=== PATIENT | male | born 1960 | race Caucasian/White ===

== ENCOUNTER 2020-01-06 07:34 | Outpatient (CLI) | payer BC, SELFPAY ==
--- NOTE | ~2020-01-06 | NM_ITS ---
EXAMINATION: NM agustina stress w perfusion DATE: 01/06/2020 11:16 INDICATION: Left bundle branch block. TECHNIQUE: Rest images were obtained following intravenous administration of 10 mCi Tc99m tetrofosmin (Myoview). The patient was infused intravenously with Lexiscan (regadenoson). Then, 30.8 mCi Tc99m t etrofosmin (Myoview) was administered intravenously, and stress images were obtained. Data was recons tructed into short axis and horizontal and vertical long axis SPECT images. Gated SPECT images were a lso obtained. COMPARISON: CT abdomen and pelvis 04/07/2009 FINDINGS: There is no definite reversible or fixed perfusion abnormality to suggest ischemia or infar ction. There is no segmental wall motion abnormality. Left ventricular ejection fraction measures 6 2%. IMPRESSION: 1. No definite ischemia or infarct. 2. Normal left ventricular ejection fraction measuring 62%. Reviewed, dictated and finalized at location A.
--- NOTE | 2020-01-06 08:50 | EST_ITS ---
Patient Info Name: Ramirez Tristan Age: 59 years : 1960 Gender: Male Exam Date: 01/06/2020 9:13 AM Exam Location: [facility] Stress Patient Status: Outpatient Admit Date: 01/06/2020 Staff Ordering Physician: Eugene Sandhu PA-C Attending Provider: Eugene Sandhu PA-C Exercise Technologist: Cj Salas RDCS, RT Exercise Physician: Pranav Smith DO Exam Type: CA stress agustina w NM Study Info A regadenoson stress test was performed. Summary 1. 1. Inconclusive lexiscan stress test for ischemic ST changes by ECG criteria due to baseline LBBB. 2. 2. Stable hemodynamics throughout the test. 3. 3. Nuclear scan to follow and will be reported separately. Please correlate with it. 4. 4. Patient informed of the above results. Protocol: Lexiscan Stress ECG Details Stage: REST Duration (min): 2 min : 20 sec HR (bpm): 74 SBP (mmHg): 127 DBP (mmHg): 83 Stage: REST Duration (min): 6 min : 51 sec HR (bpm): 78 SBP (mmHg): 127 DBP (mmHg): 83 Stage: STAGE 1 Duration (min): 1 min : 0 sec HR (bpm): 116 SBP (mmHg): 151 DBP (mmHg): 78 Stage: RECOVERY Duration (min): 1 min : 0 sec HR (bpm): 113 SBP (mmHg): 151 DBP (mmHg): 78 Stage: RECOVERY Duration (min): 2 min : 0 sec HR (bpm): 111 SBP (mmHg): 153 DBP (mmHg): 83 Stage: RECOVERY Duration (min): 3 min : 0 sec HR (bpm): 97 SBP (mmHg): 151 DBP (mmHg): 86 Stage: RECOVERY Duration (min): 3 min : 39 sec HR (bpm): 103 SBP (mmHg): 151 DBP (mmHg): 86 Rest HR: 78 bpm Peak HR: 120 bpm Rest Sys BP: 127 mmHg Peak Sys BP: 153 mmHg Max Pred HR: 160 bpm % Max Pred HR: 75 % Target HR: 136 bpm Max RPP: 18,360 bpm*mmHg Termination Reason: Completed protocol Cardiac Symptoms: None Total Time: 1 min : 0 sec Rest Vines BP: 83 mmHg Peak Vines BP: 83 mmHg Total Dose: 0.4 mg Resting ECG Sinus rhythm, LBBB. Stress ECG No ST changes. Arrhythmias None. Report Signatures
== END 2020-01-06 07:35 | disposition home or self-care (01) ==
LOC: ANHCARD 07:43
PROVIDERS: PCP Family Medicine; Visit Provider Physician Assistant
DX: I44.7 Left bundle-branch block, unspecified (principal)
CPT/HCPCS: 78452; 93017; A9502; J2785

== ENCOUNTER 2021-08-29 00:14 | Day surgery (SDC) | payer BC, SELFPAY ==
[2021-08-09 08:15] VITALS: BMI 28.9
[2021-08-29 07:21] VITALS: BP 134/77; PULSE 67; RESP 20; TEMP 36.7; O2SAT 99
[2021-08-29] MEDS: LACTATED RINGERS 1,000 ML 150 ML IV CONT (07:24)
--- NOTE | 2021-08-29 08:00 | PM.IMHP ---
H&P: HPI History of Present Illness Date/Time: 08/29/21 08:00 Chief Complaint: Neoplasia screening. Narrative: This is a 61-year-old white male patient who presents for screening surveillance colonoscopy. Patient was identified as having colon cancer in 2003. He presents today for follow-up examination. Colon cancer was previously resected treated felt to be in with no evidence of active disease. Patient reports his current weight appetite and bowel movements are normal. He denies abdominal pain. He has had no bleeding. Most recent colonoscopy 2019 reveal an adenoma the did have some dysplasia. Patient presents for follow-up today. Review of Systems Review of Systems: Review of systems noncontributory. [facility] Social History Social History (Reviewed 10/12/19 @ 13:35 by Charito Norton [facility]) Smoking status: Never smoker Alcohol intake: current Alcohol use details: very rarely Substance use: never Substance use type: does not use Living arrangements: alone Spiritual care concerns: No Meds Home Medications and Allergies Home Medications Medication Instructions Recorded Confirmed Type No Home Medications 08/29/21 08/29/21 History Allergies Allergy/AdvReac Type Severity Reaction Status Date / Time UNKNOWN CHEMO MEDICATION Allergy Unknown RASH Uncoded 08/29/21 07:19 Vital Signs Vital Signs - 24 hr 08/29/21 07:21 Temperature 98.1 F Pulse Rate 67 Respiratory Rate 20 Blood Pressure 134/77 Pulse Oximetry 99 Oxygen Delivery Room Air Exam Narrative: Physical exam reveals patient to be alert. Vital signs stable. HEENT exam is unremarkable. Patient is anicteric. Lungs are clear to auscultation and percussion. Heart is without murmur or extra sounds. Abdominal exam bowel sounds are present soft nontender with no hepatosplenomegaly. Digital external rectal exam is normal. Assessment and Plan Assessment and plan (1) History of colon cancer: Code(s): Z85.038 - Personal history of other malignant neoplasm of large intestine Status: Acute Assessment and Plan: Patient has a history of colon cancer resected 2003. He has had recurrent colon polyps on follow-up surveillance exams. Plan is for follow-up colonoscopy at 3 year intervals. Further recommendations may be given after endoscopy.
--- NOTE | 2021-08-29 08:07 | WPDANESEPPF ---
Anes - Initial Pre Proc Eval Procedure: Operation Date: 08/29/21 08:30 Proposed Procedures p Screening Colonoscopy - Shlomo Townsend MD Date/Time: 08/29/21 08:07 Surgeon: Shlomo Townsend MD Pre Op Diagnosis: neoplasm screnning, hx of colon ca Patient Data Age: 61 Gender: M Height: 1.73 m Weight: 85 kg Last Vital Signs Temp 98.1 F 08/29/21 07:21 Pulse 67 08/29/21 07:21 Resp 20 08/29/21 07:21 BP 134/77 08/29/21 07:21 Pulse Ox 99 08/29/21 07:21 O2 Del Method Room Air 08/29/21 07:21 Allergies Allergy/AdvReac Type Severity Reaction Status Date / Time UNKNOWN CHEMO MEDICATION Allergy Unknown RASH Uncoded 08/29/21 07:19 Home Medications Medication Instructions Recorded Confirmed Type No Home Medications 08/29/21 08/29/21 History Patient hx anesthesia problems: none Family hx anesthesia problems: none Results Review: All pre-operative results and documents have been reviewed as part of the pre-operative evaluation. [facility] Social History Social History Smoking status: Never smoker Alcohol intake: current Alcohol use details: very rarely Substance use: never Substance use type: does not use Living arrangements: alone Spiritual care concerns: No Anes - Eval Final PreProcedure Day of Procedure 08/29/21 08:07 Patient weight: overweight Heart: regular rate and rhythm Lungs: clear to auscultation Airway: Mallampati scale class II Neurological: alert and oriented Last oral intake: >/= 8 hours ASA classification: III Emergent: no Anesthetic plan: proceed Anesthesia type and monitoring: general GIVS and standard monitoring Results Review: All pre-operative results and documents have been reviewed as part of the pre-operative evaluation. Informed Consent: The patient's anesthetic plan and its attendant risks and benefits were discussed with the patient/family/POA. Questions were solicited and answers provided to the satisfaction of the patient/family/POA.
[2021-08-29 08:57] VITALS: BP 108/70; PULSE 66; RESP 15; O2SAT 98
[2021-08-29 09:07] VITALS: BP 112/69; PULSE 61; RESP 15; O2SAT 98
[2021-08-29 09:17] VITALS: BP 130/78; PULSE 63; RESP 22; O2SAT 99
== END 2021-08-29 09:22 | disposition home or self-care (01) ==
PROVIDERS: PCP Family Medicine; Visit Provider Internal Medicine Gastroenterology
PROC: 0DJD8ZZ Inspection of Lower Intestinal Tract, Via Natural or Artificial Opening Endoscopic (ICD-10-PCS; CPT 45378; principal; 2021-08-29 08:30)
DX: Z12.11 Encounter for screening for malignant neoplasm of colon (principal); D12.3 Benign neoplasm of transverse colon; K62.1 Rectal polyp; K64.8 Other hemorrhoids; Z85.038 Personal history of other malignant neoplasm of large intestine; Z98.0 Intestinal bypass and anastomosis status; Z90.49 Acquired absence of other specified parts of digestive tract
CPT/HCPCS: 45385; 88305; J2704; J7120

== ENCOUNTER 2022-01-16 09:19 | Outpatient (CLI) | payer BC, SELFPAY ==
[2022-01-16 19:36] LABS: Basophils Absolute Auto 0.1 K/mm3 (0.0-0.1); Basophils Percent Auto 0.8 % (0.2-1.2); Eosinophils Absolute Auto 0.1 K/mm3 (0-0.3); Eosinophils Percent Auto 2.1 % (0-4.4); Hematocrit 42.8 % (42.0-52.0); Hemoglobin 14.1 g/dL (14.0-18.0); Immature Granulocyte Absolute 0.02 K/mm3 (0.00-0.031); Immature Granulocyte Percent A 0.3 % (0-0.5); Lymphocytes Absolute Auto 2.09 K/mm3 (0.9-3.2); Lymphocytes Percent Auto 31.6 % (18.3-44.2); Mean Corpuscular HGB Conc 32.9 g/dl (32-36); Mean Corpuscular Hemoglobin 31.1 pg (26-34); Mean Corpuscular Volume 94.3 fl (80-100); Mean Platelet Volume 10.3 fl (7.4-10.4); Monocytes Absolute Auto 0.5 K/mm3 (0.1-0.6); Monocytes Percent Auto 8.2 % (2.6-8.5); Neutrophils Absolute Auto 3.8 K/mm3 (1.3-6.7); Platelet Count Result 198 k/mm3 (150-375); Red Blood Count 4.54 M/mm3 (4.6-6.20); Red Cell Distribution Width 12.7 % (11.5-14.5); White Blood Count 6.6 K/mm3 (4.5-10.0)
[2022-01-16 20:13] LABS: Alanine Aminotransferase 19 U/L (6-50); Albumin Level 4.4 g/dL (3.5-5.1); Alkaline Phosphatase 78 U/L (38-126); Amylase 112 U/L (30-110); Anion Gap 11 mmol/L (8-16); Aspartate Amino Transferase 25 U/L (17-59); Bilirubin,Total 0.4 mg/dL (0.2-1.3); Blood Urea Nitrogen 23 mg/dL (9-20); Calcium 9.1 mg/dL (8.4-10.2); Carbon Dioxide 26 mmol/L (22-30); Chloride 102 mmol/L (98-107); Cholesterol 212 mg/dL (0-200); Estimated Glomerular Filt Rate > 60; Glucose 104 mg/dL (65-110); HDL Direct 34 mg/dL; Lipase 201 U/L (23-300); Potassium 4.2 mmol/L (3.4-5.0); Sodium 139 mmol/L (137-145); Triglycerides 139 mg/dL (<150)
[2022-01-16 20:23] LABS: LDL Cholesterol Direct 130 mg/dL
[2022-01-16 21:55] LABS: Hemoglobin A1C 5.5 % (<5.7)
== END 2022-01-16 09:20 | disposition home or self-care (01) ==
LOC: ANHGOSHLAB 09:21
PROVIDERS: PCP Emergency Medicine; Visit Provider Emergency Medicine
DX: K92.1 Melena (principal); E66.9 Obesity, unspecified
CPT/HCPCS: 36415; 80048; 80061; 80076; 82150; 83036; 83690; 85025

== ENCOUNTER 2024-06-26 10:31 | Outpatient (CLI) | payer MEDICARE, SELFPAY ==
[2024-06-26 11:05] LABS: Basophils Percent Auto 0.7 % (0.2-1.2); Eosinophils Absolute Auto 0.1 K/mm3 (0-0.3); Hematocrit 45.1 % (42.0-52.0); Hemoglobin 15.2 g/dL (14.0-18.0); Immature Granulocyte Absolute 0.02 K/mm3 (0.00-0.031); Immature Granulocyte Percent A 0.3 % (0-0.5); Lymphocytes Absolute Auto 1.72 K/mm3 (0.9-3.2); Mean Corpuscular HGB Conc 33.7 g/dl (32-36); Mean Corpuscular Hemoglobin 31.2 pg (26-34); Mean Corpuscular Volume 92.6 fl (80-100); Mean Platelet Volume 9.5 fl (7.4-10.4); Monocytes Absolute Auto 0.6 K/mm3 (0.1-0.6); Monocytes Percent Auto 9.6 % (2.6-8.5); Neutrophils Absolute Auto 3.7 K/mm3 (1.3-6.7); Neutrophils Percent Auto 59.4 % (45.5-73.1); Platelet Count Result 192 k/mm3 (150-375); Red Blood Count 4.87 M/mm3 (4.6-6.20); Red Cell Distribution Width 12.1 % (11.5-14.5); White Blood Count 6.2 K/mm3 (4.5-10.0)
--- OUTSIDE RECORDS SUMMARY | 2024-06-26 11:08 | XMS_ITS | Clinical Summary ---
Author Organization [facility] Address [address] [place] [id number] Care Team Providers Care Wheel Of Fortune Dealer Name Role Phone Cathy Jaimes MD Primary Care Provider [phone] Allergies No known active allergies Medications No known medications Active Problems No known active problems Surgical History Surgery Date Site/Laterality Comments ABDOMINAL SURGERY Medical History Medical History Date Comments Cancer (HCC) Social History Tobacco Use Types Packs/Day Years Used Date Smoking Tobacco: Never Smokeless Tobacco: Never Tobacco Cessation:Counseling Given: Not Answered Alcohol Use Standard Drinks/Week Comments Not Currently 0 (1 standard drink = 0.6 oz pur e alcohol) Personal Safety Answer Date Recorded Have you ever been in or are you currently in a harmful physical or emotional relationship or is someone making you feel afraid or unsafe? Denies 03/07/2024 Sex and Gender Information Value Date Recorded Sex Assigned at Not on file Legal Sex Male 8:20 AM CDT Gender Identity Not on file Sexual Orientation Not on file Obstetrics History Last Filed Vital Signs Vital Sign Reading Time Taken Comments Blood Pressure 143/80 03/07/2024 4:[address] [facility] Pulse 64 03/07/2024 4:[address] [facility] Temperature 36.9 C (98.5 F) 03/07/2024 11:[address] [facility] Respiratory Rate 18 03/07/2024 11:[address] [facility] Oxygen Saturation 95% 03/07/2024 4:[address] [place] Inhaled Oxygen Concentration - - Weight 83.9 kg (185 lb) 03/07/2024 11:[address] [place] Height 172.7 cm (5' 8 ) 03/07/2024 11:[address] [facility] Body Mass Index 28.13 03/07/2024 11:[address] [facility] Plan of Treatment Health Maintenance Due Date Last Done Comments Colon Cancer Screening-Colonoscopy 1960 Depression Screening 1960 Fall Risk Assessment 1960 Hepatitis C Screening 1960 Prostate Cancer Screening-PSA 1960 DTaP/Tdap/Td Vaccine (1 - Tdap) 1970 Hepatitis B Screening 1977 Pneumococcal vaccine 65+ (1 of 1 - PCV) 2009 Zoster Vaccine (1 of 2) 2009 Covid-19 Vaccine (4 - 2023-2 5 season) 2023 03/09/2021, 06/06/2020, 05/04/2020 Influenza Vaccine (#1) 2023 , 06/28/2014, 02/21/2014, Additional history exists Well Visit 65+ 01/16/2024 Insurance [facility] [employer] [facility] [employer] Care Teams Wheel Of Fortune Dealer Relationship Specialty Start Date End Date Cathy Jaimes MD [address] [place] [address] PCP - General Family Medicine 07/18/21
--- OUTSIDE RECORDS SUMMARY | 2024-06-26 11:08 | XMS_ITS | Referral Summary ---
Author Organization [facility] Address [address] [place] [id number] Care Team Providers Care Ed Special Education Teacher Name Role Phone Cathy Jaimes MD Primary Care Provider [phone] Allergies No known active allergies Medications No known medications Active Problems No known active problems Social History Tobacco Use Types Packs/Day Years [...] on file Sexual Orientation Not on file Last Filed Vital Signs Vital Sign Reading Time Taken Comments Blood Pressure 143/80 03/07/2024 4:05 PM UNIT AIDE Pulse 64 03/07/2024 4:05 PM UNIT AIDE Temperature 36.9 C (98.5 F) 03/07/2024 11:54 AM UNIT AIDE Respiratory Rate 18 03/07/2024 11:54 AM UNIT AIDE Oxygen Saturation 95% 03/07/2024 4:05 PM UNIT AIDE Inhaled Oxygen Concentration - - Weight 83.9 kg (185 lb) 03/07/2024 11:54 AM UNIT AIDE Height 172.7 cm (5' 8 ) 03/07/2024 11:54 AM UNIT AIDE Body Mass Index 28.13 03/07/2024 11:54 AM UNIT AIDE Plan of Treatment Not on file Insurance [facility] [employer] [facility] [employer] Care Teams Ed Special Education Teacher Relationship Specialty Start Date End Date Cathy Jaimes MD [address] [place] [address] PCP - General Family Medicine 07/18/21
[2024-06-26 11:14] LABS: Alanine Aminotransferase 23 U/L (6-50); Albumin Level 4.7 g/dL (3.5-5.1); Alkaline Phosphatase 84 U/L (38-126); Anion Gap 8 mmol/L (4-12); Aspartate Amino Transferase 29 U/L (17-59); Bilirubin,Total 0.7 mg/dL (0.2-1.3); Blood Urea Nitrogen 24 mg/dL (9-20); Calcium 9.3 mg/dL (8.4-10.2); Carbon Dioxide 28 mmol/L (22-30); Chloride 103 mmol/L (98-107); Cholesterol 214 mg/dL (0-200); Estimated Glomerular Filt Rate > 60; Glucose 105 mg/dL (65-110); HDL Direct 36 mg/dL; Potassium 4.4 mmol/L (3.4-5.0); Sodium 139 mmol/L (137-145); Triglycerides 167 mg/dL (<150)
[2024-06-26 11:25] LABS: LDL Cholesterol Direct 125 mg/dL
[2024-06-26 12:00] LABS: Vitamin D 25 Hydroxy 30.3 ng/mL
[2024-06-26 14:03] LABS: Hemoglobin A1C 5.4 % (<5.7)
[2024-06-29 11:58] LABS: Lipoprotein A 97 nmol/L
[2024-07-01 14:23] LABS: Apolipoprotein B 135 mg/dL
[2024-07-02 17:14] LABS: Testosterone Free 65.2 pg/mL (35.0-155.0); Testosterone Total 411 ng/dL (250-1100)
== END 2024-06-26 10:32 | disposition home or self-care (01) ==
LOC: ANHLAB 10:36
PROVIDERS: PCP Emergency Medicine; Visit Provider Emergency Medicine
DX: E11.9 Type 2 diabetes mellitus without complications (principal); R53.83 Other fatigue; Z83.430 Family history of elevated lipoprotein(a); E34.9 Endocrine disorder, unspecified; E55.9 Vitamin D deficiency, unspecified; E78.5 Hyperlipidemia, unspecified; I10 Essential (primary) hypertension
CPT/HCPCS: 36415; 80053; 80061; 82172; 82306; 83036; 83695; 84402; 84403; 84443; 85025

== ENCOUNTER 2024-07-16 08:45 | Outpatient (CLI) | payer MEDICARE, SELFPAY ==
--- NOTE | 2024-07-16 09:02 | ECHO_ITS ---
Patient Info Name: Ramirez Tristan Age: 64 years : 1960 Gender: Male Ht: 68 in Wt: 200 lbs BSA: 2.11 m2 HR: 74 bpm BP: 156 / 86 mmHg Technical Quality: Good Exam Date: 07/16/2024 9:07 AM Exam Location: Echo Lab Patient Status: Outpatient Admit Date: 07/16/2024 Staff Ordering Physician: Daryrn Argueta MD Clinical Research Associate: Gracy Adler RDCS Attending Provider: Darryn Argueta MD Referring Physician: Kendall PANCHAL; Exam Type: CA echo doppler color flow Study Info Indications R01.1 - Cardiac murmur, unspecified Complete two-dimensional, color flow and Doppler transthoracic echocardiogram is performed. Summary 1. Complete two-dimensional, color flow and Doppler transthoracic echocardiogram is performed. 2. Left ventricular chamber dimension is moderately enlarged. 3. Left ventricular systolic function is normal, estimated at 55-60%. 4. There is moderate concentric increased left ventricular wall thickness. 5. The left ventricular diastolic function is abnormal. 6. E/e' 14 is mildly elevated. 7. Left atrial chamber dimension is mildly enlarged. 8. The aortic valve is bicuspid. 9. There is moderate aortic valve sclerosis. 10. There is mild to moderate aortic valve stenosis with a peak velocity of 364 cm/s, mean gradient of 35 mmHg, and aortic valve area of 1.5 cm2. 11. There is trace aortic valve regurgitation. 12. There is trace mitral valve regurgitation. 13. There is no tricuspid valve regurgitation. 14. Mild pulmonary hypertension, estimated pulmonary arterial systolic pressure is 41 mmHg. 15. The prox ascending aorta size is severely dilated at 5.1 cm. Left Ventricle E/e' 14 is mildly elevated. Left ventricular chamber dimension is moderately enlarged. Left ventricular systolic function is normal, estimated at 55-60%. There is moderate concentric increased left ventricular wall thickness. The left ventricular diastolic function is abnormal. Right Ventricle Right ventricular systolic function is normal and with normal TAPSE 1.9 cm. Right ventricular chamber dimension is normal. Left Atria Left atrial chamber dimension is mildly enlarged. Right Atria Right atrial chamber dimension is normal. Aortic Valve The aortic valve is bicuspid. There is moderate aortic valve sclerosis. There is mild to moderate aortic valve stenosis with a peak velocity of 364 cm/s, mean gradient of 35 mmHg, and aortic valve area of 1.5 cm2. There is trace aortic valve regurgitation. Pulmonic Valve There is no pulmonic regurgitation. Mitral Valve There is no mitral valve stenosis. There is trace mitral valve regurgitation. Tricuspid Valve There is no tricuspid valve regurgitation. Mild pulmonary hypertension, estimated pulmonary arterial systolic pressure is 41 mmHg. Pericardium/Pleural There is no pericardial effusion. Inferior Vena Cava Normal inferior vena cava with >50% collapse upon inspiration consistent with normal right atrial pressure, 5 mmHg. Aorta The prox ascending aorta size is severely dilated at 5.1 cm. Left Ventricular Outflow Tract Name Value Normal LVOT 2D LVOT Diameter 2.5 cm LVOT Doppler LVOT Peak Gradient 4 mmHg LVOT Mean Gradient 3 mmHg LVOT VTI 27 cm LVOT VTI/AV VTI Ratio 0.3 LVOT Stroke Volume 135 ml LVOT CO 25.7 l/min LVOT CI 12.2 l/min/m2 Pulmonic Valve Name Value Normal PV Doppler PV Peak Gradient 5 mmHg Mitral Valve Name Value Normal MV Doppler MV Decel Cabell 658 cm/s2 MV PHT 44 ms MV Area (PHT) 5.0 cm2 4.0-5.0 MV Diastolic Function MV E Peak Velocity 99 cm/s MV A Peak Velocity 94 cm/s MV E/A 1.1 MV Decel Time 151 ms MV Annular TDI MV E/e' (Septal) 21.1 <=8.0 MV E/e' (Lateral) 10.6 <=8.0 MV E/e' (Average) 15.9 Tricuspid Valve Name Value Normal TV Regurgitation Doppler TR Peak Velocity 300 cm/s TR Peak Gradient 36 mmHg Estimated PAP/RSVP RA Pressure 5 mmHg <=5 PA Systolic Pressure 41 mmHg <36 RV Systolic Pressure 41 mmHg <36 Aorta Name Value Normal Ascending Aorta Ao Root Diameter (MM) 3.8 cm Ao Root Diam Index (MM) 1.8 cm/m2 Aortic Valve Name Value Normal AV Doppler AV Peak Velocity 364 cm/s AV Peak Gradient 53 mmHg AV Mean Gradient 35 mmHg AV VTI 89 cm AV Area (Cont Eq VTI) 1.5 cm2 >=3.0 AV Area (Cont Eq Tevin) 1.4 cm2 AV Regurgitation 2D LVOT Area 5.0 cm2 AV Regurgitation Doppler AR Decel Time 818 ms AR Decel Cabell 546 cm/s2 AR PHT 237 ms Ventricles Name Value Normal LV Dimensions 2D/MM IVS Diastolic Thickness (2D) 1.4 cm 0.6-1.0 LVID Diastole (2D) 5.6 cm 4.2-5.8 LVIW Diastolic Thickness (2D) 1.1 cm 0.6-1.0 LVID Systole (2D) 4.1 cm 2.5-4.0 LVOT Diameter 2.5 cm LV Mass (2D Cubed) 306.44 g 88.00-224.00 LV Mass Index (2D Cubed) 145 g/m2 49-115 Relative Wall Thickness (2D) 0.41 LV Fractional Shortening/Ejection Fraction 2D/MM LV Fractional Shortening (2D) 26 % 25-43 LV EF (2D Teicholz) 51 % 52-72 LV Diastolic Volume (4C MOD) 242 ml LV EF (4C MOD) 55 % LV Diastolic Volume (2C MOD) 248 ml LV EF (2C MOD) 68 % LV Diastolic Volume (BP MOD) 246 ml 62-150 LV Diastolic Volume Index (BP MOD) 116 ml/m2 34-74 LV Systolic Volume (BP MOD) 98 ml 21-61 LV Systolic Volume Index (BP MOD) 47 ml/m2 11-31 LV EF (BP MOD) 60 % 52-72 LV Diastolic Length (4C) 9.5 cm LV Systolic Length (4C) 8.1 cm LV Stroke Volume (4C MOD) 132 ml RV Dimensions 2D/MM RVID Diastole (2D) 3.3 cm 2.5-3.5 Atria Name Value Normal LA Dimensions LA Dimension (MM) 3.3 cm 3.0-4.1 LA Volume (4C A-L) 41 ml LA Volume (BP A-L) 71 ml RA Dimensions RA Area (4C) 11.7 cm2 <=18.0 Report Signatures
--- OUTSIDE RECORDS SUMMARY | 2024-07-16 09:11 | XMS_ITS | Clinical Summary ---
Author Organization [facility] Address [address] [place] [id number] Care Team Providers Care Seo Expert Name Role Phone Cathy Jaimes MD Primary Care Provider [phone] Allergies No known active allergies Medications No [...] Comments Blood Pressure 143/80 03/07/2024 4:05 PM MOP MAKER Pulse 64 03/07/2024 4:05 PM MOP MAKER Temperature 36.9 C (98.5 F) 03/07/2024 11:54 AM MOP MAKER Respiratory Rate 18 03/07/2024 11:54 AM MOP MAKER Oxygen Saturation 95% 03/07/2024 4:05 PM MOP MAKER Inhaled Oxygen Concentration - - Weight 83.9 kg (185 lb) 03/07/2024 11:54 AM MOP MAKER Height 172.7 cm (5' 8 ) 03/07/2024 11:54 AM MOP MAKER Body Mass Index 28.13 03/07/2024 11:54 AM MOP MAKER Plan of Treatment Health Maintenance Due Date [...] history exists Well Visit 65+ 01/16/2024 Insurance [facility] [employer] [facility] [employer] Care Teams Seo Expert Relationship Specialty Start Date End Date Cathy Jaimes MD [address] [place] [address] PCP - General Family Medicine 07/18/21
--- OUTSIDE RECORDS SUMMARY | 2024-07-16 09:11 | XMS_ITS | Referral Summary ---
Author Organization [facility] Address [address] [place] [id number] Care Team Providers Care Test Analyst Name Role Phone Cathy Jaimes MD Primary Care Provider [phone] Allergies No known active allergies Medications No [...] Comments Blood Pressure 143/80 03/07/2024 4:05 PM X RAY CONTROL EQUIPMENT REPAIRER Pulse 64 03/07/2024 4:05 PM X RAY CONTROL EQUIPMENT REPAIRER Temperature 36.9 C (98.5 F) 03/07/2024 11:54 AM X RAY CONTROL EQUIPMENT REPAIRER Respiratory Rate 18 03/07/2024 11:54 AM X RAY CONTROL EQUIPMENT REPAIRER Oxygen Saturation 95% 03/07/2024 4:05 PM X RAY CONTROL EQUIPMENT REPAIRER Inhaled Oxygen Concentration - - Weight 83.9 kg (185 lb) 03/07/2024 11:54 AM X RAY CONTROL EQUIPMENT REPAIRER Height 172.7 cm (5' 8 ) 03/07/2024 11:54 AM X RAY CONTROL EQUIPMENT REPAIRER Body Mass Index 28.13 03/07/2024 11:54 AM X RAY CONTROL EQUIPMENT REPAIRER Plan of Treatment Not on file Insurance [facility] [employer] [facility] [employer] Care Teams Test Analyst Relationship Specialty Start Date End Date Cathy Jaimes MD [address] [place] [address] PCP - General Family Medicine 07/18/21
--- NOTE | 2024-07-16 09:35 | ECG_ITS ---
Test Date: 2024-07-16 09:38:36 Measurements Intervals [place] Rate: 70 P: 41 NM: 190 QRS: -5 QRSD: 167 T: 124 QT: 429 QTc: 463 Interpretive Statements SINUS RHYTHM WITH SINUS ARRHYTHMIA LEFT BUNDLE BRANCH BLOCK BASELINE ARTIFACT- I, II, AVR, AVF, V1-V3 ABNORMAL ECG No previous ECG available for comparison Electronically Signed On 07-16-2024 10:24:37 CDT by Pranav Smith D.O.
== END 2024-07-16 08:46 | disposition home or self-care (01) ==
LOC: ANHCARD 08:45
PROVIDERS: PCP Emergency Medicine; Visit Provider Emergency Medicine
DX: R01.1 Cardiac murmur, unspecified (principal); I44.7 Left bundle-branch block, unspecified
CPT/HCPCS: 93005; 93306

== ENCOUNTER 2024-11-13 00:22 | Day surgery (SDC) | payer MEDICARE, SELFPAY ==
[2024-10-30 14:24] VITALS: BMI 29.0
[2024-11-13 10:19] VITALS: BP 148/74; PULSE 69; RESP 18; TEMP 36.1; O2SAT 98; BMI 32.5
[2024-11-13] MEDS: LACTATED RINGERS 1,000 ML 150 ML IV CONT (10:27)
--- NOTE | 2024-11-13 10:43 | P.PNAN_ITS ---
Anes - Initial Pre Proc Eval Procedure: Operation Date: 11/13/24 11:30 Proposed Procedures p Screening Colonoscopy - Bib Gar MD Date/Time: 11/13/24 10:43 Surgeon: Bib Gar MD Pre Op Diagnosis: NEOPLASM SCREENING/HX OF COLON POLYPS Patient Data Age: 64 Gender: M Height: 1.73 m Weight: 97 kg Last Vital Signs Temp 36.1 C L 11/13/24 10:19 Pulse 69 11/13/24 10:19 Resp 18 11/13/24 10:19 BP 148/74 H 11/13/24 10:19 Pulse Ox 98 11/13/24 10:19 O2 Del Method Room Air 11/13/24 10:19 Allergies Allergy/AdvReac Type Severity Reaction Status Date / Time UNKNOWN CHEMO MEDICATION Allergy Unknown RASH Uncoded 11/13/24 10:18 Home Medications ?Medication ?Instructions ?Recorded ?Confirmed ?Type rosuvastatin 10 mg tablet (Crestor) 10 mg PO DAILY #90 tabs 07/01/24 11/13/24 Rx sodium sul 1.479 gram-potas ch See Rx Instructions PO PER PKG DIR 09/01/24 11/13/24 Rx 0.188 gram-magnes sul 0.225 gram #24 tabs tablet (Sutab) Patient hx anesthesia problems: none Family hx anesthesia problems: none Results Review: All pre-operative results and documents have been reviewed as part of the pre- operative evaluation. ON LICENSE OF [facility] Past Medical History Medical History (Updated 11/13/24 @ 10:44 by Jeff Ruggiero MD) Aortic stenosis Left bundle branch block HTN (hypertension) Personal history of malignant neoplasm of large intestine Surgical History Surgical History History of colon resection Social History Social History Social History: Caffeine-tea Smoking status: Never smoker Alcohol intake: never Alcohol use details: very rarely Substance use: never Substance use type: does not use Do You Feel Safe in your Home?: Yes Lack of Transportation: No Lack of Food: Never True Current Housing: I Have Housing Concerned About Future Housing: No Difficulty Paying Gas/Electric Bills: No Difficulty Paying for Meds: No Currently Unemployed: No Education: Bachelor's Degree Difficulty w/ Childcare or Family Care: No Living arrangements: with family Spiritual care concerns: No Anes - Eval Final PreProcedure Day of Procedure 11/13/24 10:43 Patient weight: obese Heart: regular rate and rhythm Lungs: clear to auscultation Airway: Mallampati scale class II Neurological: alert and oriented Last oral intake: >/= 8 hours ASA classification: III Emergent: no Anesthetic plan: proceed Anesthesia type and monitoring: general GIVS and standard monitoring Results Review: All pre-operative results and documents have been reviewed as part of the pre- operative evaluation. Informed Consent: The patient's anesthetic plan and its attendant risks and benefits were discussed with the patient/family/POA. Questions were solicited and answers provided to the satisfaction of the patient/family/POA.
--- NOTE | 2024-11-13 11:02 | PM.HPGS ---
History of Present Illness History of Present Illness Consent: Risks, benefits, and alternatives have been discussed and questions answered. Patient agrees to proceed with procedure. Chief complaint: NEOPLASM SCREENING/HX OF COLON POLYPS Narrative: Ramirez Tristan is a 64 year old male here for colonoscopy every 3 years. Patient was identified as having colon cancer in 2003. Review of Systems Review of Systems: All systems reviewed & are unremarkable except as noted in HPI and below PMFSH Past Medical History Medical History (Updated 11/13/24 @ 10:44 by Jeff Ruggiero MD) Aortic stenosis Left bundle branch block HTN (hypertension) Personal history of malignant neoplasm of large intestine Surgical History Surgical History History of colon resection Social History Social History Social History: Caffeine-tea Smoking status: Never smoker Alcohol intake: never Alcohol use details: very rarely Substance use: never Substance use type: does not use Do You Feel Safe in your Home?: Yes Lack of Transportation: No Lack of Food: Never True Current Housing: I Have Housing Concerned About Future Housing: No Difficulty Paying Gas/Electric Bills: No Difficulty Paying for Meds: No Currently Unemployed: No Education: Bachelor's Degree Difficulty w/ Childcare or Family Care: No Living arrangements: with family Spiritual care concerns: No Meds Home Medications and Allergies Home Medications ?Medication ?Instructions ?Recorded ?Confirmed ?Type rosuvastatin 10 mg tablet (Crestor) 10 mg PO DAILY #90 tabs 07/01/24 11/13/24 Rx sodium sul 1.479 gram-potas ch See Rx Instructions PO PER PKG DIR 09/01/24 11/13/24 Rx 0.188 gram-magnes sul 0.225 gram #24 tabs tablet (Sutab) Allergies Allergy/AdvReac Type Severity Reaction Status Date / Time UNKNOWN CHEMO MEDICATION Allergy Unknown RASH Uncoded 11/13/24 10:18 Vital Signs Vital Signs - 24 hr 11/13/24 10:19 Temperature 97 F L Pulse Rate 69 Respiratory Rate 18 Blood Pressure 148/74 H Pulse Oximetry 98 Oxygen Delivery Room Air Exam Const: General: comfortable and no acute distress HENMT: Face/Nose/Sinus: Normal nares present Eyes: General: appearance normal, both eyes and all related structures Neck: Neck: no JVD Resp: Auscultation: clear to auscultation bilaterally Cardio: Rate: regular rate Rhythm: regular rhythm GI: Inspection: non-distended GI Palp: Yes Soft to palpation Skin: General skin exam: normal color Neuro: Speech: normal speech Extrem: General: normal to inspection Psych: Mental Status: mental status grossly normal Assessment and Plan Assessment and plan (1) History of colon cancer: Code(s): Z85.038 - Personal history of other malignant neoplasm of large intestine Status: Acute Assessment and Plan: colonoscopy
[2024-11-13 11:11] VITALS: BP 89/57; PULSE 60; RESP 12; O2SAT 93
--- NOTE | 2024-11-13 11:11 | S_PTH ---
PATIENT: Ramirez Tristan LOC: [facility]#:[id number] AGE/SX: 64/M ROOM: RE11/13/[address]: Bib Gar MD : 1960 BED: DIS: 11/13/2024 SPEC #: [id number] RECD: 11/13/24 13:01 STATUS: VIVIANA RENash #: [id number] BREE: 11/13/24 11:[address]: Bib Gar DEPT: [facility] Surgical RECD BY: Rebekah Chi ENTERED: 11/13/24 13:02 SP TYPE: Surgical OTHR DR: Darryn Argueta MD Tissues: A - Colon Polypectomy Procedures: Hematoxylin and Eosin Stain Gross and Microscopic Level 4
[2024-11-13 11:21] VITALS: BP 104/65; PULSE 59; RESP 12; O2SAT 93
[2024-11-13 11:31] VITALS: BP 120/69; PULSE 59; RESP 13; O2SAT 98
== END 2024-11-13 11:38 | disposition home or self-care (01) ==
PROVIDERS: PCP Emergency Medicine; Referring Provider Internal Medicine Gastroenterology; Visit Provider Internal Medicine Gastroenterology
PROC: 0DJD8ZZ Inspection of Lower Intestinal Tract, Via Natural or Artificial Opening Endoscopic (ICD-10-PCS; CPT 45378; principal; 2024-11-13 11:30)
DX: Z12.11 Encounter for screening for malignant neoplasm of colon (principal); D12.0 Benign neoplasm of cecum; K64.8 Other hemorrhoids; K57.30 Diverticulosis of large intestine without perforation or abscess without bleeding; I10 Essential (primary) hypertension; I44.7 Left bundle-branch block, unspecified; I35.0 Nonrheumatic aortic (valve) stenosis; E66.9 Obesity, unspecified; Z68.32 Body mass index [BMI] 32.0-32.9, adult; Z98.0 Intestinal bypass and anastomosis status; Z90.49 Acquired absence of other specified parts of digestive tract; Z85.038 Personal history of other malignant neoplasm of large intestine
CPT/HCPCS: 45380; 88305; J2704; J7120

== ENCOUNTER 2025-01-19 09:40 | Outpatient (CLI) | payer MEDICARE, SELFPAY ==
--- OUTSIDE RECORDS SUMMARY | 2025-01-19 10:43 | XMS_ITS | Clinical Summary ---
Author Organization [facility] Address [address] [place] [id number] Care Team Providers Care Jig Box Operator Name Role Phone Cathy Jaimes MD Primary Care Provider [phone] Allergies No known active allergies Medications rosuvastatin (CRESTOR) 10 mg tablet Take 1 tablet (10 mg total) by mouth daily 09/27/2024 Active Active Problems No known active problems Surgical [...] Comments Blood Pressure 143/80 03/07/2024 4:05 PM TRANSCRIPTION Pulse 64 03/07/2024 4:05 PM TRANSCRIPTION Temperature 36.9 C (98.5 F) 03/07/2024 11:54 AM TRANSCRIPTION Respiratory Rate 18 03/07/2024 11:54 AM TRANSCRIPTION Oxygen Saturation 95% 03/07/2024 4:05 PM TRANSCRIPTION Inhaled Oxygen Concentration - - Weight 83.9 kg (185 lb) 03/07/2024 11:54 AM TRANSCRIPTION Height 172.7 cm (5' 8) 03/07/2024 11:54 AM TRANSCRIPTION Body Mass Index 28.13 03/07/2024 11:54 AM TRANSCRIPTION Plan of Treatment Health Maintenance Due Date Last Done Comments Colon Cancer Screening-Colonoscopy 1960 Depression Screening 1959 Fall Risk Assessment 1960 Hepatitis C Screening 1959 Prostate Cancer Screening-PSA 1959 DTaP/Tdap/Td Vaccine (1 - Tdap) 1970 Hepatitis B Screening 1977 Pneumococcal vaccine 65+ (1 of 1 - PCV) 2009 Zoster Vaccine (1 of 2) 2009 Well Visit 65+ 01/16/2024 Covid-19 Vaccine (4 - 2024-2 6 season) 2024 03/09/2021, 06/06/2020, 05/04/2020 Influenza Vaccine (#1) 2024 , 06/28/2014, 02/21/2014, Additional history exists Insurance [facility] [employer] [facility] [employer] Care Teams Jig Box Operator Relationship Specialty Start Date End Date Cathy Jaimes MD [address] [place] [address] PCP - General Family Medicine 07/18/21
[2025-01-19 10:53] LABS: Alanine Aminotransferase 32 U/L (6-50); Albumin Level 4.3 g/dL (3.5-5.1); Alkaline Phosphatase 72 U/L (38-126); Anion Gap 7 mmol/L (4-12); Aspartate Amino Transferase 37 U/L (17-59); Bilirubin,Total 0.5 mg/dL (0.2-1.3); Blood Urea Nitrogen 20 mg/dL (9-20); Calcium 8.9 mg/dL (8.4-10.2); Carbon Dioxide 29 mmol/L (22-30); Chloride 102 mmol/L (98-107); Cholesterol 176 mg/dL (0-200); Estimated Glomerular Filt Rate > 60; Glucose 105 mg/dL (65-110); HDL Direct 36 mg/dL; Potassium 4.1 mmol/L (3.4-5.0); Sodium 138 mmol/L (137-145); Total Protein 7.5 g/dL (6.3-8.2); Triglycerides 141 mg/dL (<150)
[2025-01-19 11:28] LABS: Prostate Specific Antigen 1.8 ng/mL (< OR = 4.0)
== END 2025-01-19 09:41 | disposition home or self-care (01) ==
LOC: ANHLAB 09:43
PROVIDERS: PCP Emergency Medicine; Visit Provider Emergency Medicine
DX: Z12.5 Encounter for screening for malignant neoplasm of prostate (principal); E55.9 Vitamin D deficiency, unspecified; E78.00 Pure hypercholesterolemia, unspecified
CPT/HCPCS: 36415; 80053; 80061; 82172; 82306; 83695; 84153; G0103